=== PATIENT | female | born 1975 | race Caucasian/White ===

== ENCOUNTER 2017-03-12 09:18 | Emergency (ER) | payer OTHER ==
[2017-03-12 09:37] VITALS: BP 107/66
--- NOTE | 2017-03-12 09:46 | UC ---
Hand/Wrist HPI - HPI Summary HPI Summary: right hand pain x 3 days s/p fall on her right hand and hyperextend the right hand + pain and swelling and bruising - History Of Current Complaint Chief Complaint: UCUpperExtremity Stated Complaint: RIGHT HAND INJURY Time Seen by Provider: 03/12/17 09:19 Hx Obtained From: Patient Hx Last Menstrual Period: 03/05/17 ?: No Onset/Duration: Sudden Onset, Lasting Days - 3, Still Present Severity Initially: Moderate Severity Currently: Moderate Character Of Pain: Aching Aggravating Factor(s): Movement Alleviating: Rest, Ice Associated Signs And Symptoms: Positive: Swelling, Bruising, Weakness. Negative : Redness, Numbness/Tingling - Allergies/Home Medications Allergies/Adverse Reactions: Allergies Allergy/AdvReac Type Severity Reaction Status Date / Time No Known Allergies Allergy Verified 03/12/17 09:25 Home Medications: Home Medications Ibuprofen TAB* [Advil TAB*] 800 mg PO Q6H PRN 03/12/17 [History Confirmed ] PMH/Surg Hx/FS Hx/Imm Hx Previously Healthy: Yes - Surgical History Surgical History: Yes Surgery Procedure, Year, and Place: Left Knee Arthroscopies and Open - Family History Known Family History: Positive: Other - uti's Negative: Diabetes - Social History Alcohol Use: Rare Substance Use Type: None Smoking Status (MU): Heavy Every Day Tobacco Smoker Type: Cigarettes Amount Used/How Often: 1/2 PPD Length of Time of Smoking/Using Tobacco: 19 Years Have You Smoked in the Last Year: Yes Household Exposure Type: Cigarettes Review of Systems Constitutional: Negative Skin: Negative Eyes: Negative ENT: Negative Respiratory: Negative Musculoskeletal: Other: - right hand pain / injury All Other Systems Reviewed And Are Negative: Yes Physical Exam Triage Information Reviewed: Yes Appearance: Well-Appearing, No Pain Distress, Well-Nourished Vital Signs: Initial Vital Signs Temp 98 F 03/12/17 09:26 Pulse 68 03/12/17 09:26 Resp 16 03/12/17 09:26 BP 107/66 03/12/17 09:26 Pulse Ox 100 03/12/17 09:26 Vital Signs Reviewed: Yes Eyes: Positive: Conjunctiva Clear ENT: Positive: Normal ENT inspection, Hearing grossly normal, Pharynx normal Neck exam: Normal Respiratory: Positive: Chest non-tender, Lungs clear, Normal breath sounds Cardiovascular: Positive: RRR, No Murmur, Pulses Normal Musculoskeletal: Positive: Other: - right hand : + swelling, echymosis, tenderness distal 4th metacarpal bone, limited ROM on flexion Diagnostics - Laboratory Diagnostic Studies Completed/Ordered: fracture right 4th proximal phalangs Hand/Wrist Course/Dx - Differential Dx/Diagnosis Provider Diagnoses: fracture right 4th finger Discharge - Discharge Plan Condition: Stable Disposition: HOME Patient Education Materials: Finger Fracture (ED) Referrals: Estephania Avila PA [Primary Care Provider] - Georgi Rachel MD [Medical Doctor] - As Soon As Possible
--- NOTE | 2017-03-12 10:02 | RAD ---
INDICATION: RIGHT hand fourth digit pain and swelling post fall 2 days ago. COMPARISON: No relevant prior exams available on the [facility] PACS for comparison. TECHNIQUE: AP, lateral, and oblique views RIGHT hand. REPORT: Mildly comminuted grossly nondisplaced fracture at the base of the fourth proximal phalanx with intra-articular extension at the ulnar margin without significant resulting articular surface discontinuity or incongruity. Overlying soft tissue swelling as well as generalized swelling over the dorsum of the hand. Normal articular alignment. IMPRESSION: Mildly comminuted grossly nondisplaced fracture at the base of the fourth proximal phalanx with intra-articular extension at the ulnar margin without significant resulting articular surface discontinuity or incongruity.
== END 2017-03-12 10:23 | disposition home or self-care (01) ==
LOC: UCCORT 09:18
DX: S62.664A Nondisplaced fracture of distal phalanx of right ring finger, initial encounter for closed fracture (principal); W19.XXXA Unspecified fall, initial encounter; Y93.9 Activity, unspecified; Y92.9 Unspecified place or not applicable; F17.210 Nicotine dependence, cigarettes, uncomplicated
CPT/HCPCS: 26720; 99211; G0463

== ENCOUNTER 2019-03-27 19:51 | Emergency (ER) | payer OTHER ==
[2019-03-27 20:51] VITALS: BP 119/69
--- NOTE | 2019-03-27 21:05 | ED ---
Abdominal Pain/Female - HPI Summary HPI Summary: pt presents to for evaluation of her impressive epigastric pain. she states that she has not eaten much due to pain. she states that this is keeping her up at night. she denies drinking alcohol other than perhaps once a month. she denies any fever or chills. she states that her stomach kills her when she eats. - History of Current Complaint Chief Complaint: UCGeneralIllness Stated Complaint: UPPER ABD PAIN Hx Obtained From: Patient Hx Last Menstrual Period: "end of february"; had nexplanon removed 03/24/19 Onset/Duration: Lasting Days Timing: Constant - worse when she eats Severity Initially: Mild Pain Intensity: 6 Allergies/Adverse Reactions: Allergies Allergy/AdvReac Type Severity Reaction Status Date / Time No Known Allergies Allergy Verified 03/27/19 20:45 PMH/Surg Hx/FS Hx/Imm Hx Previously Healthy: Yes - Surgical History Surgery Procedure, Year, and Place: Left Knee Arthroscopies and Open Infectious Disease History: No Infectious Disease History: Denies: Traveled Outside the [place] in Last 30 Days - Family History Known Family History: Positive: Other - uti's Negative: Diabetes - Social History Alcohol Use: Rare Substance Use Type: Reports: None Smoking Status (MU): Heavy Every Day Tobacco Smoker Type: Cigarettes Amount Used/How Often: 1/2 PPD Length of Time of Smoking/Using Tobacco: 19 Years Have You Smoked in the Last Year: Yes Review of Systems Constitutional: Negative Eyes: Negative ENT: Negative Positive: Other Respiratory: Negative Positive: Abdominal Pain Genitourinary: Negative Musculoskeletal: Negative Skin: Negative Neurological: Negative Psychological: Normal All Other Systems Reviewed And Are Negative: No Physical Exam Triage Information Reviewed: Yes Vital Signs On Initial Exam: Initial Vitals Temp Pulse Resp BP Pulse Ox 97.7 F 73 16 119/69 100 03/27/19 20:45 03/27/19 20:45 03/27/19 20:45 03/27/19 20:45 03/27/19 20:45 Completion Of Physical Exam Limited Due To: Dementia Appearance: Positive: Well-Appearing, No Pain Distress, Well-Nourished Skin: Positive: Warm, Dry Eyes: Positive: Normal, EOMI, ANDRES ENT: Positive: Hearing grossly normal Neck: Positive: Supple, Nontender Respiratory/Lung Sounds: Positive: Clear to Auscultation, Breath Sounds Present Cardiovascular: Positive: Normal, RRR Abdomen Description: Positive: Soft, Other: - minimal tenderness to epigastric area Bowel Sounds: Positive: Present Musculoskeletal: Positive: Normal, Strength/ROM Intact Neurological: Positive: Normal, Sensory/Motor Intact, Alert, Oriented to Person Place, Time, CN Intact II-III Psychiatric: Positive: Normal AVPU Assessment: Alert Diagnostics - Vital Signs Vital Signs Temp Pulse Resp BP Pulse Ox 03/27/19 20:45 97.7 F 73 16 119/69 100 - Laboratory Lab Statement: Any lab studies that have been ordered have been reviewed, and results considered in the medical decision making process. Abdominal Pain Fem Course/Dx - Course Course Of Treatment: pt is having impressive epigastric pain by hx. exam is not very impressive. I spoke with pt regarding limitations of the uc. i rec she go to ED for eval. I called and spoke to Dr. Pantoja. she is aware of pt going to Ed. - Diagnoses Provider Diagnoses: Abdominal pain Discharge - Sign-Out/Discharge Documenting (check all that apply): Patient Departure All imaging exams completed and their final reports reviewed: No Studies - Discharge Plan Condition: Stable Disposition: [facility] Patient Education Materials: Acute Abdominal Pain (ED) Referrals: Vicky Maurer [Primary Care Provider] - - Billing Disposition and Condition Condition: STABLE Disposition: [facility] Fac
== END 2019-03-27 21:16 | disposition short-term general hospital (02) ==
LOC: UCCORT 19:51
DX: R10.13 Epigastric pain (principal); F17.210 Nicotine dependence, cigarettes, uncomplicated
CPT/HCPCS: 99212; G0463